=== PATIENT | female | born 1945 | race Caucasian/White ===

== ENCOUNTER → 2017-03-25 | Outpatient (CLI) | payer MEDICARE, OTHER | END | disposition home or self-care (01) | LOC: CFH 11:22 | PROVIDERS: ATTEND Nurse Practitioner Family | DX: Z13.820 Encounter for screening for osteoporosis (principal); M85.88 Other specified disorders of bone density and structure, other site; Z78.0 Asymptomatic menopausal state | CPT/HCPCS: 77080 ==

== ENCOUNTER 2017-10-03 16:03 | Inpatient (IN) | payer MEDICARE, OTHER ==
[~2017-10-03] VITALS: Ht 152.4 cm; Wt 64.3 kg
[2017-10-03] MEDS ORDERED: METOCLOPRAMIDE 5 MG/ML, 2ML ONE (16:48)
[2017-10-03 16:58] LABS: BASOPHILS # (AUTO) 0.06 x10^3/uL (0-0.1); BASOPHILS % (AUTO) 1 % (0-1); EOSINOPHILS # (AUTO) 0.09 x10^3/uL (0-0.4); EOSINOPHILS % (AUTO) 2 % (1-7); LYMPHOCYTES # (AUTO) 1.24 x10^3/uL (1-3.4); LYMPHOCYTES % (AUTO) 20 % (22-44); MD NO; MEAN CORPUSCULAR HEMOGLOBIN 28.8 pg (27.0-34.8); MEAN CORPUSCULAR HGB CONC 33.6 g/dL (32.4-35.8); MEAN CORPUSCULAR VOLUME 85.9 fL (80-100); MEAN PLATELET VOLUME 8.8 fL (7.4-10.4); MONOCYTES # (AUTO) 0.75 x10^3/uL (0.2-0.8); MONOCYTES % (AUTO) 12 % (2-9); NEUTROPHILS # (AUTO) 4.18 x10^3/uL (1.8-6.8); NEUTROPHILS % (AUTO) 66 % (42-75); PLATELET COUNT 178 x10^3/uL (130-400); RED BLOOD COUNT 4.59 x10^6/uL (3.82-5.3); RED CELL DISTRIBUTION WIDTH 13.3 % (9.6-15.2)
[2017-10-03 16:59] LABS: INTERNATIONAL NORMALIZED RATIO 1.06 (0.93-1.1)
[2017-10-03] MEDS ORDERED: SODIUM CHLORIDE 0.9%, 500ML IVBOLUS ONE (17:00)
[2017-10-03] MEDS ORDERED: METOCLOPRAMIDE 5 MG/ML, 2ML IVPush ONE (17:00)
[2017-10-03 17:02] LABS: ALANINE AMINOTRANSFERASE 23 U/L (12-78); ALBUMIN 3.8 g/dL (3.4-5.0); ANION GAP 9 mmol/L (5-15); CALCIUM 8.7 mg/dL (8.5-10.1); CHLORIDE 104 mmol/L (98-107); CREATININE 0.83 mg/dL (0.55-1.02)
[2017-10-03 17:04] LABS: ALKALINE PHOSPHATASE 47 U/L (45-117); BILIRUBIN,TOTAL 0.3 mg/dL (0.2-1.0); TOTAL PROTEIN 6.4 g/dL (6.4-8.2)
[2017-10-03] MEDS ORDERED: ASPIRIN 81 MG TABLET CHEW PO ONE (18:00)
[2017-10-03] MEDS ORDERED: ASPIRIN 81 MG TABLET CHEW ONE (18:24)
[2017-10-03] MEDS ORDERED: TIZA2CAP PO (18:35)
[2017-10-03] MEDS ORDERED: TRAM50TA2 PO (18:35)
[2017-10-03] MEDS ORDERED: DICY20TA3 PO (18:35)
[2017-10-03] MEDS ORDERED: ONDA4TAB12 PO (18:35)
[2017-10-03] MEDS ORDERED: TRAZ150T62 PO (18:35)
[2017-10-03] MEDS ORDERED: DULO20CA45 PO (18:35)
[2017-10-03] MEDS ORDERED: FLUT1BLS INH (18:35)
[2017-10-03] MEDS ORDERED: ROSU10TA PO (18:35)
[2017-10-03] MEDS ORDERED: TIZANIDINE 2MG TABLET PO PRN (19:00)
[2017-10-03] MEDS ORDERED: DOCUSATE 100 MG CAPSULE PO PRN (19:00)
[2017-10-03] MEDS ORDERED: ONDANSETRON 4 MG TABLET PO PRN (19:00)
[2017-10-03] MEDS ORDERED: POLYETHYLENE GLYCOL 17 GM PACKET PO PRN (19:00)
[2017-10-03] MEDS ORDERED: ENALAPRILAT 1.25 MG/ML, 2ML IV PRN (19:00)
[2017-10-03] MEDS ORDERED: ACETAMINOPHEN 650 MG/20.3 ML UDC PO PRN (19:00)
[2017-10-03] MEDS ORDERED: TRAZODONE 150MG TABLET PO PRN (19:00)
[2017-10-03 20:02] VITALS: BP 167/74
[2017-10-03 20:10] LABS: CULTURE INDICATED? YES; MICROSCOPIC AUTO
[2017-10-03] MEDS ORDERED: ATORVASTATIN 20 MG TABLET PO SCH (21:00)
[2017-10-03 21:55] VITALS: BP 157/72
[2017-10-03 22:13] VITALS: BP 157/72
[2017-10-03] MEDS: DICYCLOMINE 20 MG TABLET PO SCH (22:32)
[2017-10-03 23:41] VITALS: BP 160/70
[2017-10-04 02:02] VITALS: BP 138/59
[2017-10-04 04:16] VITALS: BP 138/73
[2017-10-04 05:38] LABS: CHOL/HDL RATIO 3.5; LDL/HDL RATIO 2.2 (0.5-3.0)
[2017-10-04 06:16] VITALS: BP 159/74
[2017-10-04] MEDS: DICYCLOMINE 20 MG TABLET PO SCH ×2 (06:19→11:00)
[2017-10-04] MEDS ORDERED: FLUTICASONE/VILANTEROL 200-25MCG/INH INH SCH (09:00)
[2017-10-04] MEDS ORDERED: ASPIRIN 81 MG TABLET CHEW PO/NG SCH (09:00)
[2017-10-04] MEDS ORDERED: DULOXETINE 20 MG CAPSULE.DR PO SCH (09:00)
[2017-10-04 12:32] VITALS: BP 144/73
[2017-10-04] MEDS ORDERED: ASPI-515 PO/NG (13:33)
[2017-10-04] MEDS ORDERED: ATOR20TA9 PO (13:33)
[2017-10-04] MEDS ORDERED: NITR100C56 PO (13:36)
== END 2017-10-04 15:19 | disposition home or self-care (01) | DRG 69 ==
LOC: ED 18:42 → EDIP 18:45 → 4WST 19:50 → DCLOUNGE 10-04 15:05
PROVIDERS: ADMIT Internal Medicine; ATTEND Internal Medicine
DX: G45.9 Transient cerebral ischemic attack, unspecified (principal); I71.2 Thoracic aortic aneurysm, without rupture; N39.0 Urinary tract infection, site not specified; E78.5 Hyperlipidemia, unspecified; I10 Essential (primary) hypertension; J45.909 Unspecified asthma, uncomplicated; M79.7 Fibromyalgia; G43.109 Migraine with aura, not intractable, without status migrainosus; H53.149 Visual discomfort, unspecified; G89.29 Other chronic pain; Z87.891 Personal history of nicotine dependence; Z90.710 Acquired absence of both cervix and uterus; Z90.89 Acquired absence of other organs; Z98.42 Cataract extraction status, left eye; Z98.41 Cataract extraction status, right eye; Z88.0 Allergy status to penicillin; Z88.1 Allergy status to other antibiotic agents; Z88.8 Allergy status to other drugs, medicaments and biological substances
CPT/HCPCS: 36415; 70450; 70551; 80053; 80061; 81001; 85025; 85610; 85730; 87086; 93005; 93306; 93880; 96361; 96374; J2765; J7040

== ENCOUNTER → 2018-03-17 | Outpatient (CLI) | payer MEDICARE, OTHER ==
[~2018-03-17] MED LIST: ASPI-515 PO/NG; ATOR20TA9 PO; DICY20TA3 PO; DULO20CA45 PO; FLUT1BLS INH; NITR100C56 PO; ONDA4TAB12 PO; ROSU10TA PO; TIZA2CAP PO; TRAM50TA2 PO; TRAZ150T62 PO
== END | disposition home or self-care (01) ==
LOC: CFH 11:08
PROVIDERS: ATTEND Nurse Practitioner Family
DX: Z12.31 Encounter for screening mammogram for malignant neoplasm of breast (principal)
CPT/HCPCS: 77063; 77067